=== PATIENT | male | born 1960 | race Caucasian/White ===

== ENCOUNTER 2021-10-28 12:58 | Emergency (ER) | payer SELFPAY ==
[2021-10-28] MEDS ORDERED: Ketorolac Tromethamine 30 MG/ML VIAL ONE (17:13)
== END 2021-10-28 17:20 | disposition home or self-care (01) ==
LOC: CSHERS 12:58
DX: M79.89 Other specified soft tissue disorders (principal); M25.521 Pain in right elbow; M79.631 Pain in right forearm; F17.220 Nicotine dependence, chewing tobacco, uncomplicated; Y04.0XXA Assault by unarmed brawl or fight, initial encounter
CPT/HCPCS: 93005; 96372; J1885

== ENCOUNTER 2022-05-25 12:27 | Emergency (ER) | payer SELFPAY ==
[2022-05-25] MEDS ORDERED: Ketorolac Tromethamine 30 MG/ML VIAL ONE ×2 (12:58→13:00)
== END 2022-05-25 13:43 | disposition home or self-care (01) ==
LOC: CSHERS 12:27
DX: S16.1XXA Strain of muscle, fascia and tendon at neck level, initial encounter (principal); F17.220 Nicotine dependence, chewing tobacco, uncomplicated; X58.XXXA Exposure to other specified factors, initial encounter
CPT/HCPCS: 70450; 72125; 96372; J1885